=== PATIENT | female | born 1965 | race Caucasian/White ===

== ENCOUNTER 2022-04-19 13:58 | Outpatient (CLI) | payer MEDICARE, SELFPAY ==
--- NOTE | 2022-04-19 14:46 | ECG_ITS ---
Measurements Intervals [place] Rate: 67 P: -2 IA: 153 QRS: -4 QRSD: 101 T: 12 QT: 380 QTc: 403 Interpretive Statements SINUS RHYTHM INCOMPLETE RIGHT BUNDLE BRANCH BLOCK LOW QRS VOLTAGE IN PRECORDIAL LEADS BORDERLINE ECG NO PREVIOUS ECG AVAILABLE FOR COMPARISON Electronically Signed On 04-19-2022 15:29:43 CDT by Nishant Rosario D.O.
[2022-04-19 15:32] LABS: Basophils Percent Auto 0.7 % (0.2-1.2); Eosinophils Absolute Auto 0.2 K/mm3 (0-0.3); Eosinophils Percent Auto 4.3 % (0-4.4); Hematocrit 43.2 % (37.0-47.0); Hemoglobin 14.3 g/dL (12.0-15.0); Immature Granulocyte Absolute 0.08 K/mm3 (0.00-0.031); Immature Granulocyte Percent A 1.5 % (0-0.5); Lymphocytes Absolute Auto 0.25 K/mm3 (0.9-3.2); Lymphocytes Percent Auto 4.6 % (18.3-44.2); Mean Corpuscular HGB Conc 33.1 g/dl (32-36); Mean Corpuscular Hemoglobin 29.5 pg (26-34); Mean Corpuscular Volume 89.1 fl (80-100); Mean Platelet Volume 10.7 fl (7.4-10.4); Monocytes Absolute Auto 0.6 K/mm3 (0.1-0.6); Monocytes Percent Auto 11.3 % (2.6-8.5); Neutrophils Absolute Auto 4.2 K/mm3 (1.3-6.7); Neutrophils Percent Auto 77.6 % (45.5-73.1); Platelet Count Result 228 k/mm3 (150-375); Red Blood Count 4.85 M/mm3 (4.2-5.4); White Blood Count 5.4 K/mm3 (4.5-10.0)
[2022-04-19 15:47] LABS: Albumin Level 4.4 g/dL (3.5-5.1); Estimated Glomerular Filt Rate 57; Glucose 81 mg/dL (65-110)
[2022-04-19 15:55] LABS: Hemoglobin A1C 4.8 % (<5.7)
[2022-04-19 16:06] LABS: Urine Cotinine NEGATIVE
== END 2022-04-19 13:59 | disposition home or self-care (01) ==
LOC: ANHSURGERY 14:03
PROVIDERS: PCP Family Medicine; Visit Provider Orthopaedic Surgery
DX: M17.11 Unilateral primary osteoarthritis, right knee (principal); Z01.818 Encounter for other preprocedural examination; I45.10 Unspecified right bundle-branch block
CPT/HCPCS: 80307; 82040; 82565; 82947; 83036; 85025; 86850; 86900; 86901; 87081; 93005

== ENCOUNTER 2022-04-26 02:11 | Day surgery (SDC) | payer MEDICARE, SELFPAY ==
[2022-03-05 12:17] VITALS: BMI 34.9
--- NOTE | 2022-04-19 13:21 | PC.NURSE ---
PRE-OP INSTRUCTIONS, PLEASE READ CAREFULLY Report to the Outpatient Waiting Room, entrance under the green pavilion located off [facility], at time _1000_ on date _04/26/22_. Planned Procedure Time:_1200_. PACK A SMALL OVERNIGHT BAG AND LEAVE IN THE CAR ALONG WITH YOUR WALKER Time changes happen often and if your time is changed the preop area will call you the afternoon before. - You and your visitor will be asked to self-screen and do not enter if you have any COVID symptoms. - Only one visitor is requested with a max of two and NO children visitors are allowed at this time. - The patient visitor may be requested to leave or wait in car when not with patient due to distancing restrictions. - A mask is optional within the hospital at this time. -VISITING HOURS 8AM-8PM Patients may have clear liquids (water, carbonated beverages, clear teas, apple juice) until 3 hours prior to surgery (0900 AM) with a maximum of 20 ounces. - No food from midnight until time of surgery Take the following medications with a SIP of water the morning of surgery: _BUPROPION, SERTRALINE, MAYZENT, TOPIRAMATE, & GABAPENTIN IF NEEDED_ DO NOT STOP ANY OF YOUR OTHER PRESCRIPTION MEDICATIONS PRIOR TO SURGERY ?EXCEPT THE FOLLOWING Medications to discontinue per physician N/A , Date to take last dose Please no make-up, nail v[place] citizen, hairspray, perfume, deodorant, or body powder the day of surgery. No jewelry (including any body piercings) or valuables the day of surgery, leave them at home. Please take a shower or bath the night before, or the morning of, surgery with an antibacterial soap. Wear comfortable, loose fitting clothing. - Jewelry must be removed prior to entering the operating room. Rings and piercings that are not removed may be cut off. - The hospital will not accept responsibility for valuables. - Please leave all valuables, including medications, at home the day of surgery. If you are going home after surgery, a licensed salesperson driver must drive you home. - NO public transportation without another adult if you receive anesthesia. - We recommend that an adult stay with you for 24 hours following discharge. - We also recommend that you do not drive, make important decision, drink alcoholic beverages, or take any drugs that were not prescribed by your health care provider for at least 24 hours after your discharge time. Follow any additional instructions given to you from your surgeon. If you or anyone in your household have experienced Covid symptoms in the past week, please notify your surgeon or the nurse liaison at the phone number below for possible testing. Instructions given to _PATIENT_and asked if any additional questions and then verbalized understanding. Patient advised to call surgeon office or pre surgery nurse liaison [phone] if any additional questions.
[2022-04-19 14:15] VITALS: BP 132/82; PULSE 78; RESP 18; TEMP 36.7; O2SAT 98; BMI 34.8
--- NOTE | 2022-04-23 15:40 | PM.IMHP ---
H&P: HPI History of Present Illness Date/Time: 04/23/22 15:40 Chief Complaint: The patient is a 57-year-old female who sees Dr. Torres regarding her right knee. The patient has a chronic ongoing history of pain localized to the right knee this is due to primary osteoarthritis. The patient has aching pain worse with activities and relieved by rest she cannot stand or walk for long periods she has aching pain that limits what she can do during the day she has startup pain rest pain and night pain despite conservative measures including cortisone therapy and anti-inflammatories her symptoms continue. X-rays show advanced primary osteoarthritis of the right knee joint. She has had multiple cortisone injections gel shots to treat her quda-ln-snox changes in the medial compartment with varus deformity of the right knee she is tired of living with it has discussed further treatment options in detail Dr. Torres she would now like to proceed with right total knee arthroplasty. Review of Systems Review of Systems: Ten point review of systems otherwise negative [facility] Social History Social History Smoking packs per day: 1 Smoking cigarettes per day: 20.0 Years smoked: 16 Smoking pack-years: 16.00 Smoking status: Former smoker Tobacco type: e-cigarettes/vaping Second hand tobacco smoke exposure: No Additional smoking assessment comments: STATES STOPPED SMOKING , QUIT VAPING 03/05/22 Alcohol intake: former Substance use: never Substance use type: does not use Living arrangements: with family Additional living arrangements comments: LIVES WITH DAUGHTER CAMILLA Spiritual care concerns: No Meds Home Medications and Allergies Home Medications Medication Instructions Recorded Confirmed Type baclofen 20 mg tablet 30 mg PO HS 03/05/22 04/19/22 History bupropion HCl 300 mg 24 hr tablet, 300 mg PO DAILY 03/05/22 04/19/22 History extended release cholecalciferol (vitamin D3) 125 125 mcg PO HS 03/05/22 04/19/22 History mcg (5,000 unit) tablet gabapentin 300 mg tablet 300 mg PO PRN PRN Pain 03/05/22 04/19/22 History mirabegron 25 mg tablet,extended 25 mg PO DAILY 03/05/22 04/19/22 History release 24 hr (Myrbetriq) polyethylene glycol 3350 17 17 g PO PRN PRN Constipation 03/05/22 04/19/22 History gram/dose oral powder (Miralax) sertraline 100 mg tablet 100 mg PO DAILY 03/05/22 04/19/22 History siponimod 2 mg tablet (Mayzent) 2 mg PO DAILY 03/05/22 04/19/22 History temazepam 15 mg capsule 15 mg PO PRN PRN Insomnia 03/05/22 04/19/22 History topiramate 100 mg tablet 100 mg PO BID MIGRAINS 03/05/22 04/19/22 History Allergies Allergy/AdvReac Type Severity Reaction Status Date / Time No Known Allergies Allergy Verified 04/19/22 14:12 Exam Narrative: on exam today the patient is noted be well-developed well-nourished female no acute distress alert oriented x3. Normal mood and affect. Hearing and vision intact. Respiratory is good no distress. Pulse regular rate and rhythm. Abdomen benign. The patient is noted be 5 ft 3 in tall 190 lb with a BMI 33.7. Extremities showed the patient's right knee to be painful with manipulation and range of motion. She has mild varus deformity subpatellar crepitation through the arc of motion mild swelling. Motion is approximately 5-120 degrees she has no erythema heat effusion or signs of infection strength is 5 5 knee joint is otherwise stable neurovascularly she is intact skin is intact central nervous system within normal limits. Assessment and Plan Assessment and plan (1) Primary osteoarthritis of right knee: Code(s): M17.11 - Unilateral primary osteoarthritis, right knee Status: Acute Plan by x-ray and exam the patient is noted to have advanced primary osteoarthritis of the right knee joint. The patient has discussed risks benefits limitations and alternatives to surgery in gre
[2022-04-26] VITALS (13 sets, daily range): BP systolic 106–143; BP diastolic 72–96; PULSE 77–88; RESP 10–17; TEMP 36.3–37; O2SAT 94–100
--- NOTE | ~2022-04-26 | XR_ITS ---
EXAMINATION: [id number] DATE: 04/26/2022 14:11 INDICATION: Postoperative evaluation following right total knee arthroplasty. TECHNIQUE: Anteroposterior and lateral views of the right knee were obtained. COMPARISON: None. FINDINGS: Right total knee arthroplasty with patellar resurfacing appears well seated and in near anatomic alig nment. No fractures identified. Expected postoperative subcutaneous and intra-articular gas. Anterio r midline skin kishan at the right knee. IMPRESSION: 1. Right total knee arthroplasty, negative for postoperative purposes. Reviewed, dictated and finalized at location A.
[2022-04-26] MEDS: ACETAMINOPHEN 500 MG TABLET 1000 MG PO (10:16)
[2022-04-26] MEDS: LACTATED RINGERS 1,000 ML 30 ML IV CONT ×2 (10:27→13:59)
--- NOTE | 2022-04-26 10:27 | WPDHPUPDATE1 ---
History and Physical Update Update Date/Time: 04/26/22 10:27 History and Physical has been reviewed, including an updated exam of the patient. There are NO changes in the patient's condition. Risks, benefits, and alternatives have been discussed and questions answered. Patient agrees to proceed with procedure.
[2022-04-26] MEDS: TRANEXAMIC ACID 1,000MG/ISO100 1,000 MG/100 ML BAG 200 MG IVPB (11:12)
--- NOTE | 2022-04-26 11:18 | WPDANESEPPF ---
Anes - Initial Pre Proc Eval Procedure: Operation Date: 04/26/22 12:00 Proposed Procedures p Right Total Knee Arthroplasty - David Torres MD Date/Time: 04/26/22 11:18 Surgeon: David Torres MD Pre Op Diagnosis: O A Rt Knee Patient Data Age: 57 Gender: F Height: 1.6 m Weight: 87.45 kg Last Vital Signs Temp 37.0 C 04/26/22 10:59 Pulse 81 04/26/22 10:59 Resp 16 04/26/22 10:59 BP 128/80 04/26/22 10:59 Pulse Ox 98 04/26/22 10:59 O2 Del Method Room Air 04/26/22 10:59 Allergies Allergy/AdvReac Type Severity Reaction Status Date / Time No Known Allergies Allergy Verified 04/26/22 10:58 Home Medications Medication Instructions Recorded Confirmed Type baclofen 20 mg tablet 30 mg PO HS 03/05/22 04/26/22 History bupropion HCl 300 mg 24 hr tablet, 300 mg PO DAILY 03/05/22 04/26/22 History extended release cholecalciferol (vitamin D3) 125 125 mcg PO HS 03/05/22 04/26/22 History mcg (5,000 unit) tablet gabapentin 300 mg tablet 300 mg PO PRN PRN Pain 03/05/22 04/26/22 History mirabegron 25 mg tablet,extended 25 mg PO DAILY 03/05/22 04/26/22 History release 24 hr (Myrbetriq) polyethylene glycol 3350 17 17 g PO PRN PRN Constipation 03/05/22 04/26/22 History gram/dose oral powder (Miralax) sertraline 100 mg tablet 100 mg PO DAILY 03/05/22 04/26/22 History siponimod 2 mg tablet (Mayzent) 2 mg PO DAILY 03/05/22 04/26/22 History temazepam 15 mg capsule 15 mg PO PRN PRN Insomnia 03/05/22 04/26/22 History topiramate 100 mg tablet 100 mg PO BID MIGRAINS 03/05/22 04/26/22 History Patient hx anesthesia problems: none Family hx anesthesia problems: none Results Review: All pre-operative results and documents have been reviewed as part of the pre-operative evaluation. [facility]LY [facility] Past Medical History Medical History (Updated 04/26/22 @ 11:23 by Armen Baig MD) Anxiety Multiple sclerosis Obesity Social History Social History Smoking packs per day: 1 Smoking cigarettes per day: 20.0 Years smoked: 16 Smoking pack-years: 16.00 Smoking status: Former smoker Tobacco type: e-cigarettes/vaping Second hand tobacco smoke exposure: No Additional smoking assessment comments: STATES STOPPED SMOKING , QUIT VAPING 03/05/22 Alcohol intake: former Substance use: never Substance use type: does not use Living arrangements: with family Additional living arrangements comments: LIVES WITH DAUGHTER CAMILLA Spiritual care concerns: No Anes - Eval Final PreProcedure Day of Procedure 04/26/22 11:18 Patient weight: obese Heart: regular rate and rhythm Lungs: clear to auscultation Airway: Mallampati scale class II Neurological: alert and oriented Last oral intake: >/= 8 hours ASA classification: III Emergent: no Anesthetic plan: proceed Anesthesia type and monitoring: general ETT and standard monitoring Results Review: All pre-operative results and documents have been reviewed as part of the pre-operative evaluation. Informed Consent: The patient's anesthetic plan and its attendant risks and benefits were discussed with the patient/family/POA. Questions were solicited and answers provided to the satisfaction of the patient/family/POA.
[2022-04-26] MEDS: ceFAZolin 2 GM/D5W 50 ML 2 GM/50 ML BAG IVPB (11:59)
[2022-04-26] MEDS: GENTAMICIN BONE CEMENT REFOBACIN 1 EACH TOPICAL (12:40)
[2022-04-26] MEDS: ONDANSETRON INJ 4 MG/2 ML VIAL IV PUSH (14:09)
--- NOTE | 2022-04-26 14:11 | P.OPB_ITS ---
Procedure Note - Brief Procedure Note - Brief Date of procedure: 04/26/22 Pre-op diagnosis: O A Rt Knee Preop diagnosis advanced primary osteoarthritis right knee Postop diagnosis same status post right total knee arthroplasty Procedure performed: Right total knee arthroplasty Description of procedure: Patient was taken the operating room on April 26, 2022. I entered the room at 11:55 a.m. and assisted with positioning of the patient on the operating table and once anesthesia was begun I placed a tourniquet on the right thigh and proceeded with a sterile prep and drape of the right lower extremity. And shane then entered the room and commence with a total knee arthroplasty throughout the procedure I assisted with wound retraction positioning of the leg and hemostasis with suction and cautery. I also assisted with excess cement removal and placement of the implant. Once Dr. Torres was done with his portion of the procedure I then irrigated the wound major hemostasis was obtained with cauterization and placed Surgicel powder. I then proceeded with closure of the joint capsule using 2. Vicryl and 2. Quill type suture. I then irrigated the wound once again and again made sure hemostasis was obtained with cauterization I then proceeded to close the superficial and skin layers using 2- 0 Vicryl, 0 Quill, in kishan. I then placed a sterile dressing using Xeroform 4x4s soft roll and a long Ashish wrap from the toes to the groin. Patient tolerated the procedure well was ready for discharge to recovery room in good condition total blood loss was approximately 200 cc. I assisted with transfer of the patient from the operating table to the stretcher for transport to recovery room. I exited the room at 2:00 p.m.. Surgeon: Surgeon David Torres MD 1st assistant superintendent Kris Caldwell PA-C
[2022-04-26] MEDS: HYDROmorphone HCL INJ (*CRX) 1 MG/ML SYR 0.25 MG IV PUSH ×12 (14:13→15:14)
[2022-04-26] MEDS: diphenhydrAMINE HCl INJ 50 MG/ML VIAL 25 MG IV PUSH (14:32)
--- NOTE | 2022-04-26 14:40 | P.OP_ITS ---
Procedure Note - Detailed Date of Procedure 04/26/22 Pre-op Diagnosis O A Rt Knee Post-op Diagnosis Same Procedure Performed [Right] total knee arthroplasty Surgeon David Torres MD Radio Communication Coordinator Kris Caldwell Anesthesia General Description of Procedure The patient was brought to the operating room. General anesthetic was administered. Placed on the operating table and sterilely prepped and draped in usual manner. A longitudinal incision was made. Tourniquet inflated to 300 mmHg for a total of [time] minutes. Dissection carried down to the fascia. Medial parapatellar incision was made and the patella subluxated laterally. Patella cut from [25] to [16] mm and sized for a [34] mm button. The tibia cut perpendicular to the long axis and femur cut in 5 degrees of valgus, a [62.5] femur trialed. [67] tibia was felt to fit the best. The soft tissue balanced, hemostasis obtained. All [address], [67] tibia, [62.5] femur, [34] mm patella, and [11AS] mm poly. Motion was 0-125 degrees with good stablility and flexion and extension. The wound was closed with #2 vicryl, 2-0 Vicryl and kishan. Implants My Single [employer] Estimated Blood Loss -200.0 Drains No Packing No Pathology None sent Complications No immediate complications Condition Stable Disposition PACU
[2022-04-26] MEDS: HYDROcodone/acetaminophen (*CRX) 7.5-325 MG TABLET 1 TAB PO (16:07)
[2022-04-26] MEDS: SODIUM CHLORIDE 0.9% IV 1,000 ML 125 ML IV CONT (16:07)
[2022-04-26] MEDS: HYDROcodone/acetaminophen (*CRX) 5-325 MG TABLET 1 TAB PO (17:23)
[2022-04-26] MEDS: CELECOXIB 200 MG CAPSULE PO (17:24)
[2022-04-26] MEDS: TOPIRAMATE 100 MG TABLET PO (17:24)
[2022-04-26] MEDS: SENNA/DOCUSATE SODIUM TABLET 2 TAB PO (17:24)
[2022-04-26] MEDS: RIVAROXABAN 10 MG TABLET PO (17:24)
[2022-04-26] MEDS: ceFAZolin 1 GM/NS 50 ML 1 GM/50 ML BAG IVPB (20:40)
[2022-04-26] MEDS: traMADol HCL (*CRX) 50 MG TABLET PO (20:41)
[2022-04-26] MEDS: CHOLECALCIFEROL 1,000 UNITS TABLET 5000 UNITS PO (20:41)
[2022-04-26] MEDS: BACLOFEN 10 MG TABLET 30 MG PO (20:41)
[2022-04-26] MEDS: TEMAZEPAM (*CRX) 15 MG CAPSULE PO (20:41)
--- NOTE | 2022-04-26 21:16 | PM.IMCN ---
Assessment and Plan Assessment and plan (1) S/P total knee arthroplasty: Code(s): Z96.659 - Presence of unspecified artificial knee joint Status: Acute Assessment and Plan: Postop care per Dr. Torres Pain management per Dr. Torres PT OT per Dr. Torres Pain management per Dr. Torres The patient stated that she is going to outpatient physical therapy. She stated that her daughters at home and will help take care of her at home. DVT prophylaxis is per Ortho. Appears that the patient is on Xarelto. (2) Depression: Code(s): F32.A - Depression, unspecified Status: Acute Assessment and Plan: Continue with her home medication of sertraline and Wellbutrin (3) Neuropathy: Code(s): G62.9 - Polyneuropathy, unspecified Status: Acute Assessment and Plan: Continue with gabapentin (4) Anxiety: Code(s): F41.9 - Anxiety disorder, unspecified Status: Acute Assessment and Plan: Continue with sertraline (5) Multiple sclerosis: Code(s): G35 - Multiple sclerosis Status: Acute Assessment and Plan: Continue with baclofen and gabapentin and mayzent . The patient may use her medication at from home as it appears mayzent is non formulary. (6) Migraine: Code(s): G43.909 - Migraine, unspecified, not intractable, without status migrainosus Status: Acute Assessment and Plan: Continue Topamax Plan Thank you for allowing us to consult on this patient. We will continue to co manage alongside you. Please call for any further questions or concerns. HPI Data of Consult Consult date: 04/26/22 Requesting Physician: David Torres MD Primary Care Provider: Gianna AllenMD Consult Narrative Narrative: Kirsty Brown is a 57 year old female who has a history of MS. The patient stated that she has been dealing with chronic pain to her right knee. The patient has tried conservative measures such as physical therapy and injections. The patient has had a prior poor experience with another type of surgery and was very anxious about the surgery. However she could no longer do with the day-to-day discomfort. The patient underwent a right total knee arthroplasty per Dr. Torres today. Please see operative note. The patient is very groggy tonight but is awake and talking to me without difficulty. The patient is also complaining of some discomfort to the right knee at this time. X-ray was read as right total knee arthroplasty negative for postoperative purposes. The hospitalist group was consulted for medical management on the date of service of 04/26/2022. Review of Systems Review of Systems: All systems reviewed & are unremarkable except as noted in HPI and below Constitutional: Constitutional: Reports as per HPI and Reports no additional constitutional complaints Eyes: Eyes: Reports as per HPI and Reports no additional eye complaints ENT: Reports system reviewed and no additional complaints, except as documented and Reports Normal hearing present Cardiovascular: Cardiovascular: Reports no additional cardiovascular complaints Respiratory: Respiratory: Reports no additional respiratory complaints and Reports no additional respiratory complaints Gastrointestinal: Gastrointestinal: Reports as per HPI and Reports no additional gastrointestinal complaints Musculoskeletal: Musculoskeletal: Reports no additional musculoskeletal complaints Integumentary/Breasts: Skin/Breast: Reports system reviewed and no additional complaints, except as docu and Reports as per HPI Neurologic: Reports system reviewed and no additional complaints, except as documented, Reports as per HPI and Reports Normal hearing present Psychiatric: Psychiatric: Reports no additional psychiatric complaints and Reports as per HPI Endocrine: Endocrine: Reports no additional endocrine complaints Hematologic/Lymphatic: Hematologic/Lymphatic: Reports
[2022-04-27 01:15] VITALS: BP 102/73; PULSE 73; RESP 14; TEMP 36.2; O2SAT 97
[2022-04-27] MEDS: HYDROcodone/acetaminophen (*CRX) 7.5-325 MG TABLET 1 TAB PO ×2 (01:38→09:34)
[2022-04-27] MEDS: ceFAZolin 1 GM/NS 50 ML 1 GM/50 ML BAG IVPB ×2 (04:11→11:34)
[2022-04-27] MEDS: HYDROcodone/acetaminophen (*CRX) 5-325 MG TABLET 1 TAB PO (04:12)
[2022-04-27 05:13] VITALS: BP 118/75; PULSE 72; RESP 14; TEMP 36.7; O2SAT 95
[2022-04-27 06:36] LABS: Basophils Percent Auto 0.1 % (0.2-1.2); Eosinophils Percent Auto 0.4 % (0-4.4); Hematocrit 35.5 % (37.0-47.0); Hemoglobin 11.4 g/dL (12.0-15.0); Immature Granulocyte Absolute 0.07 K/mm3 (0.00-0.031); Lymphocytes Absolute Auto 0.14 K/mm3 (0.9-3.2); Lymphocytes Percent Auto 2.1 % (18.3-44.2); Mean Corpuscular HGB Conc 32.1 g/dl (32-36); Mean Corpuscular Hemoglobin 29.9 pg (26-34); Mean Corpuscular Volume 93.2 fl (80-100); Mean Platelet Volume 10.9 fl (7.4-10.4); Monocytes Absolute Auto 0.9 K/mm3 (0.1-0.6); Monocytes Percent Auto 12.9 % (2.6-8.5); Neutrophils Absolute Auto 5.6 K/mm3 (1.3-6.7); Neutrophils Percent Auto 83.5 % (45.5-73.1); Platelet Count Result 164 k/mm3 (150-375); Red Blood Count 3.81 M/mm3 (4.2-5.4); Red Cell Distribution Width 15.2 % (11.5-14.5); White Blood Count 6.7 K/mm3 (4.5-10.0)
[2022-04-27 06:52] LABS: Anion Gap 2 mmol/L (8-16); Blood Urea Nitrogen 13 mg/dL (7-17); Calcium 8.2 mg/dL (8.4-10.2); Carbon Dioxide 26 mmol/L (22-30); Chloride 111 mmol/L (98-107); Estimated CRCL calculation 63 ml/min; Estimated Glomerular Filt Rate > 60; Glucose 93 mg/dL (65-110); Potassium 4.1 mmol/L (3.4-5.0); Sodium 139 mmol/L (137-145)
--- NOTE | 2022-04-27 07:42 | P.PNAN_ITS ---
Anes - Prog Note Post-Op Date/Time: 04/27/22 07:42 Cardiovascular status: normal Respiratory status: normal Airway patency: baseline Mental status: baseline Post-Op hydration status: normal Vital Signs: Last Vital Signs Temp 36.7 C 04/27/22 05:13 Pulse 72 04/27/22 05:13 Resp 14 04/27/22 05:13 BP 118/75 04/27/22 05:13 Pulse Ox 95 04/27/22 05:13 O2 Del Method Room Air 04/26/22 20:00 O2 Flow Rate 2 04/26/22 15:25 Pain Score (VAS): 03/19 I/O: Intake & Output 04/26/22 04/26/22 04/27/22 15:59 23:59 07:59 Intake Total 900 50 50 Output Total 200 500 Balance 900 -150 -450 Laboratory Tests 04/27/22 06:07 04/27/22 06:07 04/27/22 04/27/22 06:07 06:07 WBC 6.7 RBC 3.81 L Hgb 11.4 L Hct 35.5 L MCV 93.2 MCH 29.9 MCHC 32.1 RDW 15.2 H Plt Count 164 MPV 10.9 H Immature Gran % (Auto) 1.0 H Neut % (Auto) 83.5 H Lymph % (Auto) 2.1 L [place] % (Auto) 12.9 H Eos % (Auto) 0.4 Baso % (Auto) 0.1 L Lymph # (Auto) 0.14 L [place] # (Auto) 0.9 H Eos # (Auto) 0.0 Baso # (Auto) 0.0 Abs Immat Gran (auto) 0.07 H Absolute Neuts (auto) 5.6 Absolute Nucleated RBC 0.0 Nucleated RBC % 0.0 Sodium 139 Potassium 4.1 Chloride 111 H Carbon Dioxide 26 Anion Gap 2 L BUN 13 Creatinine 0.90 Estim Creat Clear Calc 63 Estimated GFR > 60 Glucose 93 Calcium 8.2 L Post-procedural complaints: none Patient Feedback: Patient satisfied with anesthetic care.
[2022-04-27 08:00] VITALS: BP 123/78; PULSE 71; RESP 12; TEMP 36.2; O2SAT 98
[2022-04-27] MEDS: SERTRALINE HCL 50 MG TABLET 100 MG PO (09:35)
[2022-04-27] MEDS: MIRABEGRON 25 MG ER TABLET PO (09:35)
[2022-04-27] MEDS: SENNA/DOCUSATE SODIUM TABLET 2 TAB PO (09:35)
[2022-04-27] MEDS: buPROPion HCL XL (24 HR) 150 MG TABCR 300 MG PO (09:35)
[2022-04-27] MEDS: TOPIRAMATE 100 MG TABLET PO (09:35)
[2022-04-27] MEDS: CELECOXIB 200 MG CAPSULE PO (09:35)
[2022-04-27] MEDS: polyethylene glycoL 3350 17 GM POWD.PACK PO (09:35)
--- NOTE | 2022-04-27 11:00 | PM.IMPN ---
Progress Note: A&P Assessment and Plan (1) S/P total knee arthroplasty: Code(s): Z96.659 - Presence of unspecified artificial knee joint Status: Acute Assessment and Plan: Postop care per ortho Pain management norco and tramadol PRN PT OT ordered The patient stated that she is going to outpatient physical therapy. She stated that her daughters at home and will help take care of her at home. DVT prophylaxis Xarelto per othro Weight bearing status: full weight bearing (2) Depression: Code(s): F32.A - Depression, unspecified Status: Acute Assessment and Plan: Continue sertraline and Wellbutrin (3) Multiple sclerosis: Code(s): G35 - Multiple sclerosis Status: Chronic Assessment and Plan: Continue with baclofen and gabapentin and mayzent mayzent is non formulary ok to use home medication stable chronic (4) Migraine: Code(s): G43.909 - Migraine, unspecified, not intractable, without status migrainosus Status: Acute Assessment and Plan: Continue Topamax stable and chronic Time Spent With Patient Time: 36 minutes Time with patient: Greater than 35 minutes Subjective Date/time seen: 04/27/22 1100 Interval history: 04/27/22 1100 patient her daughter were present the room. Patient stated that she was pretty miserable as she was having a lot of pain in her pain was not controlled well. She currently rates her pain a 10+ out of 10. She also stated that she is just very weak and fatigued however she thinks that is more related to her MS. She denies any current chest pain, shortness a breath, nausea, vomiting, diarrhea or constipation. Will give the patient 1 dose of Toradol to see if that helps with her pain currently patient is stable for discharge per hospitalist point of view. 04/26/22 Kirsty Brown is a 57 year old female who has a history of MS.? The patient stated that she has been dealing with chronic pain to her right knee.? The patient has tried conservative measures such as physical therapy and injections.? The patient has had a prior poor experience with another type of surgery and was very anxious about the surgery.? However she could no longer do with the day-to-day discomfort.? The patient underwent a right total knee arthroplasty per Dr. Torres today.? Please see operative note.? The patient is very groggy tonight but is awake and talking to me without difficulty.? The patient is also complaining of some discomfort to the right knee at this time.? X-ray was read as right total knee arthroplasty negative for postoperative purposes.? The hospitalist group was consulted for medical management on the date of service of 04/26/2022. Review of Systems Review of Systems: All systems reviewed & are unremarkable except as noted in HPI and below Exam Narrative: General: well-nourished, well-appearing 57-year-old female, laying in bed, comfortable, NARD Neuro: awake, alert and oriented x4, speech clear, no focal neuro deficits noted HEENMT: normocephalic, atraumatic, EOMI, sclerae anicteric, moist oral mucosa Respiratory: Clear to auscultation bilaterally without crackles, rhonchi or wheezes, nonlabored breathing Cardio: regular rate, regular rhythm with S1-S2 Abdomen: nondistended, normoactive bowel sounds, soft, nontender to palpation Extremities: no edema, erythema, or tenderness to palpation, DP pulses 2+ bilaterally, right knee with dressing clean dry and intact Skin: no rashes or lesions, warm and dry Psych: appropriate mood and affect, judgment and insight intact Objective Data Vital Signs Vital Signs: Vital Signs - 24 hr 04/26/22 10:59 04/26/22 13:59 04/26/22 14:10 Temperature 98.6 F 98.3 F Pulse Rate 81 87 80 Respiratory Rate 16 10 L 16 Blood Pressure 128/80 131/96 H 143/84 H Pulse Oximetry 98 94 98 Oxygen Delivery Room Air Simple Face M
--- NOTE | 2022-04-27 11:12 | PM.PNORT ---
Progress Note: A&P Assessment and Plan (1) S/P total knee arthroplasty: Code(s): Z96.659 - Presence of unspecified artificial knee joint Status: Acute Plan Patient is postop day 1 status post right total knee arthroplasty some postop pain but otherwise doing well. She is ready for discharge to home see discharge orders. We talked about the postop course and instructions in detail today at bedside she voiced understanding and agrees with above plan she will call for any further problems difficulties or questions. Subjective Subjective Date/Time Seen: 04/27/22 11:12 patient was seen today sitting up in the chair having some postop pain in the knee nothing out of the ordinary. Little slow in physical therapy but is ready for discharge to home has no other complaints. Had several questions about the postoperative course we talked about this in detail today. She felt reassured and states she will be ready for discharge this afternoon after therapy Review of Systems Review of Systems: 10 point review of systems negative Exam Narrative: patient is noted be sitting up in the chair well-developed well-nourished no acute distress alert oriented x3. Normal mood and affect. Neurovascular she is intact wound right knee clean and dry calves benign able to do a straight leg raise of and we lower toes easily. Tolerated physical therapy today with some postop discomfort. Objective Data Vital Signs Vital Signs: Vital Signs - 24 hr 04/26/22 13:59 04/26/22 14:10 04/26/22 14:25 Temperature 36.8 C Pulse Rate 87 80 78 Respiratory Rate 10 L 16 17 Blood Pressure 131/96 H 143/84 H 133/80 Pulse Oximetry 94 98 100 Oxygen Delivery Simple Face Mask Simple Face Mask Simple Face Mask Oxygen Flow Rate 8 8 8 04/26/22 14:40 04/26/22 14:55 04/26/22 15:10 Temperature Pulse Rate 77 79 79 Respiratory Rate 12 12 14 Blood Pressure 130/89 128/76 132/87 Pulse Oximetry 96 99 97 Oxygen Delivery Nasal Cannula Nasal Cannula Nasal Cannula Oxygen Flow Rate 2 2 2 04/26/22 15:25 04/26/22 16:00 04/26/22 15:30 Temperature 36.3 C L Pulse Rate 83 82 Respiratory Rate 13 16 Blood Pressure 120/92 H 125/82 Pulse Oximetry 95 99 98 Oxygen Delivery Nasal Cannula Room Air Oxygen Flow Rate 2 04/26/22 15:45 04/26/22 17:15 04/26/22 20:58 Temperature 36.4 C 36.6 C 36.6 C Pulse Rate 84 88 77 Respiratory Rate 16 14 16 Blood Pressure 129/92 H 119/72 106/82 Pulse Oximetry 99 95 96 Oxygen Delivery Oxygen Flow Rate 04/26/22 20:00 04/27/22 01:15 04/27/22 05:13 Temperature 36.2 C L 36.7 C Pulse Rate 73 72 Respiratory Rate 14 14 Blood Pressure 102/73 118/75 Pulse Oximetry 97 95 Oxygen Delivery Room Air Oxygen Flow Rate 04/27/22 08:00 04/27/22 08:27 Temperature 36.2 C L Pulse Rate 71 Respiratory Rate 12 Blood Pressure 123/78 Pulse Oximetry 98 Oxygen Delivery Room Air Oxygen Flow Rate Intake/Output Intake/Output: Intake & Output 04/24/22 04/25/22 04/26/22 04/27/22 23:59 23:59 23:59 23:59 Intake Total 950 50 Output Total 200 500 Balance 750 -450 Meds/Results Medications: Active Medications Generic Name Dose Route Start Last Admin Trade Name Freq PRN Reason Stop Dose Admin Hydrocodone Bitart/Acetaminophen 1 tab 04/26/22 15:30 04/27/22 04:12 Hydrocodone/Acetaminophen (*Crx) 5-325 Mg Tablet PO 1 tab Q4H PRN Administration Pain Rated 4-6 Hydrocodone Bitart/Acetaminophen 1 tab 04/26/22 15:30 04/27/22 09:34 Hydrocodone/Acetaminophen (*Crx) 7.5-325 Mg Tablet PO 1 tab Q6H PRN Administration Pain Rated 7-10 Baclofen 30 mg 04/26/22 21:00 04/26/22 20:41 Baclofen 10 Mg Tablet PO 30 mg HS LALI Administration Bupropion HCl 300 mg 04/27/22 09:00 04/27/22 09:35 Bupropion Hcl Xl (24 Hr) 150 Mg Tabcr PO 300 mg DAILY LALI Administration Celecoxib 200 mg 04/26/22 17:00 04/27/22 09:35 Celecoxib 200 Mg Capsule PO 200 mg
--- NOTE | 2022-04-27 11:15 | PM.DS ---
DS: Admitting Diagnosis Discharge Date April 27, 2022 Admitting Diagnosis advanced primary osteoarthritis right knee discharge diagnosis same status post right total knee arthroplasty DS: Summary Hospital Course Hospital Course: patient was kept overnight status post right total knee arthroplasty has no significant complaints today other than postop pain nothing out of the ordinary. Tolerated therapy up in the chair now. Postop day 1 vital signs are stable she is afebrile neurovascular she is intact wound is clean and dry calves are benign. Patient and I is today discussed discharge orders and instructions she voiced understanding and is ready for discharge home later today. The patient will be discharged home general diet activity as tolerated weightbearing as tolerated right lower extremity with a walker follow-up at our office 2 weeks postop for staple removal and wound recheck. She will start Xarelto 10 mg daily for a total postop course of 2 weeks when this is complete showed aspirin 325 mg b.i.d. x1 month. Patient was also discharged with Stout 7.5 mg 1 tablet every 6 hours p.r.n. severe pain these 2 prescriptions were electronically sent to her pharmacy. She will keep the wound clean and dry watch for evidence of drainage or infection she will call the office immediately for any further problems difficulties or questions she is discharged in good condition to home. Time Spent with Patient Time attestation: Total time spent providing and/or coordinating discharge services: Exam Narrative: Vital signs stable her febrile neurovascular she is intact wound is clean and dry calves are benign alert oriented x3. Normal mood and affect. Up in therapy today tolerated well. DS: Data Data Completed and Pending Labs on day of discharge: Labs from last 24 hours 04/27/22 04/27/22 06:07 06:07 WBC 6.7 RBC 3.81 L Hgb 11.4 L Hct 35.5 L MCV 93.2 MCH 29.9 MCHC 32.1 RDW 15.2 H Plt Count 164 MPV 10.9 H Immature Gran % (Auto) 1.0 H Neut % (Auto) 83.5 H Lymph % (Auto) 2.1 L [place] % (Auto) 12.9 H Eos % (Auto) 0.4 Baso % (Auto) 0.1 L Lymph # (Auto) 0.14 L [place] # (Auto) 0.9 H Eos # (Auto) 0.0 Baso # (Auto) 0.0 Abs Immat Gran (auto) 0.07 H Absolute Neuts (auto) 5.6 Absolute Nucleated RBC 0.0 Nucleated RBC % 0.0 Sodium 139 Potassium 4.1 Chloride 111 H Carbon Dioxide 26 Anion Gap 2 L BUN 13 Creatinine 0.90 Estim Creat Clear Calc 63 Estimated GFR > 60 Glucose 93 Calcium 8.2 L Discharge Plan Discharge Patient Disposition: Home, Self-Care Discharge Instructions: David Torres M.D [facility], [facility] [address] [place] [address] POST-OPERATIVE DISCHARGE INSTRUCTIONS TOTAL KNEE ARTHROPLASTY 1. When resting, lie on back with leg elevated above hear to minimize swelling. Significant swelling could indicate a blood clot and if this occurs call the office (or go to the ER) to have a venous ultrasound. 2. Do exercise 5 times a day. 3. Do not sit with leg down except for meals. 4. Wound Care: Nursing will give additional dressings at discharge. Patient to change dressing at home 1 week from surgery, then maintain until seen in office. 5. May shower with dressing in place. 6. Follow weight bearing status instructions. IMPORTANT: Remember not to sit in the chair for more than 30 minutes at a time. As a rule, during the first 14 days after surgery, only sit in the chair to work on the chair knee bending stretch exercise, for meals or for use of the restroom. Sitting in the chair promotes significant swelling in the knee and leg which will make the knee stiff and more painful and which simulates having a blood clot in the veins of the leg. If this type of significant diffuse swelling occurs, an ultrasound at the hospital will be necessary to rule out a blood clot. Be up walking su
[2022-04-27] MEDS: KETOROLAC 30 MG/ML VIAL (*BKC) IV PUSH (11:34)
[2022-04-27 11:56] VITALS: BP 122/86; PULSE 76; RESP 16; TEMP 36.6; O2SAT 99
== END 2022-04-27 15:10 | disposition home or self-care (01) ==
LOC: ANHSURGERY 14:48 → ANH3MEDSUR 15:32
PROVIDERS: PCP Family Medicine; Visit Provider Orthopaedic Surgery
PROC: (CPT 27447; principal; 2022-04-26 12:00)
DX: M17.11 Unilateral primary osteoarthritis, right knee (principal); G89.18 Other acute postprocedural pain; G35 Multiple sclerosis; F41.9 Anxiety disorder, unspecified; G62.9 Polyneuropathy, unspecified; G43.909 Migraine, unspecified, not intractable, without status migrainosus; E66.9 Obesity, unspecified; Z68.34 Body mass index [BMI] 34.0-34.9, adult; Z87.891 Personal history of nicotine dependence
CPT/HCPCS: 27447; 36415; 73560; 80048; 80307; 82040; 82565; 82947; 83036; 85025; 86850; 86900; 86901; 87081; 93005; 97110; 97116; 97161; 97165; A9270; C1713; C1770; C1776; J0690; J1100; J1170; J1200; J1885; J2250; J2270; J2405; J2704; J2795; J3010; J3370; J7030; J7120

== ENCOUNTER 2023-08-23 07:53 | Outpatient (CLI) | payer MEDICARE, SELFPAY ==
--- NOTE | 2023-08-23 09:04 | ECG_ITS ---
Test Date: 2023-08-23 09:21:12 Measurements Intervals [place] Rate: 73 P: -14 [place]: 143 QRS: -7 QRSD: 99 T: 9 QT: 375 QTc: 414 Interpretive Statements SINUS RHYTHM BORDERLINE T WAVE ABNORMALITY- ANTERIOR LEADS BASELINE ARTIFACT- I, III, AVR, AVL, AVF, V1-V6 BORDERLINE ECG No previous ECG available for comparison Electronically Signed On 08-23-2023 11:55:31 CDT by Nishant Rosario D.O.
[2023-08-23 09:28] LABS: Basophils Percent Auto 0.7 % (0.2-1.2); Eosinophils Absolute Auto 0.2 K/mm3 (0-0.3); Eosinophils Percent Auto 3.5 % (0-4.4); Hematocrit 45.9 % (37.0-47.0); Hemoglobin 14.9 g/dL (12.0-15.0); Immature Granulocyte Absolute 0.06 K/mm3 (0.00-0.031); Immature Granulocyte Percent A 1.1 % (0-0.5); Lymphocytes Absolute Auto 0.24 K/mm3 (0.9-3.2); Lymphocytes Percent Auto 4.4 % (18.3-44.2); Mean Corpuscular HGB Conc 32.5 g/dl (32-36); Mean Corpuscular Hemoglobin 29.7 pg (26-34); Mean Corpuscular Volume 91.6 fl (80-100); Mean Platelet Volume 10.8 fl (7.4-10.4); Monocytes Absolute Auto 0.6 K/mm3 (0.1-0.6); Monocytes Percent Auto 11.5 % (2.6-8.5); Neutrophils Absolute Auto 4.3 K/mm3 (1.3-6.7); Neutrophils Percent Auto 78.8 % (45.5-73.1); Platelet Count Result 216 k/mm3 (150-375); Red Blood Count 5.01 M/mm3 (4.2-5.4); Red Cell Distribution Width 14.7 % (11.5-14.5); White Blood Count 5.4 K/mm3 (4.5-10.0)
[2023-08-23 09:39] LABS: Albumin Level 4.4 g/dL (3.5-5.1); Estimated Glomerular Filt Rate 51; Glucose 94 mg/dL (65-110)
[2023-08-23 09:50] LABS: Urine Cotinine NEGATIVE
== END 2023-08-23 07:54 | disposition home or self-care (01) ==
PROVIDERS: PCP Family Medicine; Visit Provider Orthopaedic Surgery
DX: M17.12 Unilateral primary osteoarthritis, left knee (principal); Z01.818 Encounter for other preprocedural examination; R94.31 Abnormal electrocardiogram [ECG] [EKG]
CPT/HCPCS: 80307; 82040; 82565; 82947; 83036; 85025; 86850; 86900; 86901; 93005

== ENCOUNTER 2023-08-31 00:44 | Day surgery (SDC) | payer MEDICARE, SELFPAY ==
[2023-08-23 07:43] VITALS: BP 126/92; PULSE 72; RESP 16; TEMP 37.3; O2SAT 97; BMI 34.3
--- NOTE | 2023-08-23 07:51 | PC.NURSE ---
Report to the Outpatient Waiting Room, entrance under the green pavilion located off [facility], at time 06:00AM__ on date ___08/31/23____. Planned Procedure Time: ___07:30AM . Time changes happen often and if your time is changed the preop area will call you the afternoon before. - You and your visitor will be asked to self-screen and do not enter if you have any COVID symptoms. - A mask is optional within the hospital at this time. Patients may have clear liquids (water, carbonated beverages, clear teas, apple juice) until 3 hours prior to surgery with a maximum of 20 ounces. - No food from midnight until time of surgery Take the following medications with a SIP of water the morning of surgery: BUPROPION, SERTRALINE, TOPIRAMATE DO NOT STOP ANY OF YOUR OTHER PRESCRIPTION MEDICATIONS PRIOR TO SURGERY ?EXCEPT THE FOLLOWING Medications to discontinue per physician ____ALL VITAMINS, SUPPLEMENTS 3 DAYS PREOP PER ANESTHESIA Date to take last dose 08/27/23 Please no make-up, nail tamazight, hairspray, perfume, deodorant, or body powder the day of surgery. No jewelry (including any body piercings) or valuables the day of surgery, leave them at home. Please take a shower or bath the night before, or the morning of, surgery with an antibacterial soap. Wear comfortable, loose fitting clothing. Children are encouraged to wear pajamas. - Jewelry must be removed prior to entering the operating room. Rings and piercings that are not removed may be cut off. - The hospital will not accept responsibility for valuables. - Please leave all valuables, including medications, at home the day of surgery. If you are going home after surgery, a licensed corrugated fastener driver must drive you home. - NO public transportation without another adult if you receive anesthesia. - We recommend that an adult stay with you for 24 hours following discharge. - We also recommend that you do not drive, make important decision, drink alcoholic beverages, or take any drugs that were not prescribed by your health care provider for at least 24 hours after your discharge time. Follow any additional instructions given to you from your surgeon. If you or anyone in your household have experienced Covid symptoms in the past week, please notify your surgeon or the nurse liaison at the phone number below for possible testing. Telephone instructions given to PATIENT and asked if any additional questions and then verbalized understanding. Patient advised to call surgeon office or pre surgery nurse liaison [phone] if any additional questions.
--- NOTE | 2023-08-30 08:10 | PM.IMHP ---
H&P: HPI History of Present Illness Date/Time: 08/30/23 08:10 Chief Complaint: Patient has osteoarthritis of the left knee. This has been unresponsive to conservative treatment. She would like to consider knee replacement surgery at this time. Review of Systems Musculoskeletal: Musculoskeletal: Reports arthralgias, Reports joint swelling and Reports stiffness [facility] Past Medical History Medical History Anxiety Depression Migraine Multiple sclerosis Neuropathy Obesity Surgical History Surgical History H/O bladder repair surgery H/O: hysterectomy History of right knee joint replacement 04/2022 Hx of cholecystectomy S/P total knee arthroplasty Family History Family History Father Depression Lung cancer Mother Leukemia Grandparent Breast cancer Social History Social History Social History: The patient lives with her daughter who has spina bifida. Patient is disabled. She is . Code status full code Smoking packs per day: 0.5 Smoking cigarettes per day: 10.0 Years smoked: 35 Smoking pack-years: 17.50 Smoking status: Former smoker Tobacco type: cigarettes and e-cigarettes/vaping Second hand tobacco smoke exposure: No Smoking end date: 08/07/17 Additional smoking assessment comments: QUIT VAPING W NICOTINE 2022 Alcohol intake: current Substance use: never Substance use type: does not use Do You Feel Safe in your Home?: Yes Lack of Transportation: No Lack of Food: Never True Current Housing: I Have Housing Concerned About Future Housing: No Difficulty Paying Gas/Electric Bills: No Difficulty Paying for Meds: No Currently Unemployed: No Education: High School Diploma/GED Difficulty w/ Childcare or Family Care: No Living arrangements: with family Additional living arrangements comments: WITH DAUGHTER Additional occupation/education comments: disabled Spiritual care concerns: No Meds Home Medications and Allergies Home Medications Medication Instructions Recorded Confirmed Type baclofen 20 mg tablet 30 mg PO TID SPASM 03/05/22 08/23/23 History bupropion HCl 300 mg 24 hr tablet, 300 mg PO DAILY 03/05/22 08/23/23 History extended release cholecalciferol (vitamin D3) 125 125 mcg PO DAILY 03/05/22 08/23/23 History mcg (5,000 unit) tablet gabapentin 300 mg tablet 300 mg PO PRN PRN Pain 03/05/22 08/23/23 History polyethylene glycol 3350 17 17 g PO PRN PRN Constipation 03/05/22 08/23/23 History gram/dose oral powder (Miralax) sertraline 100 mg tablet 100 mg PO DAILY 03/05/22 08/23/23 History siponimod 2 mg tablet (Mayzent) 2 mg PO DAILY 03/05/22 08/23/23 History temazepam 15 mg capsule (Restoril) 15 mg PO HS Insomnia 03/05/22 08/23/23 History topiramate 100 mg tablet See Rx Instructions .Route 03/05/22 08/23/23 History .COMPLEX MIGRAINS phentermine 37.5 mg capsule 37.5 mg PO DAILY 05/04/23 08/23/23 History rivaroxaban 10 mg tablet (Xarelto) 10 mg PO DAILY PE prophylaxis s/p 08/25/23 Rx joint replacement surgery 10 days #10 tabs Allergies Allergy/AdvReac Type Severity Reaction Status Date / Time No Known Allergies Allergy Verified 08/23/23 08:04 Exam Narrative: Patient has mild varus deformity. She has range of motion from about 3-110 degrees. She has grinding crepitus and pain with any manipulation. She walks with an antalgic gait. She has had a knee replacement on the right knee and that is well healed. Eyes: General: appearance normal, both eyes and all related structures Neck: Neck: supple Resp: Effort & Inspection: normal respiratory effort Cardio: Rate: regular rate Rhythm: regular rhythm Assessment and Plan Assessment and plan (1) History of knee replacement procedure
[2023-08-31] VITALS (12 sets, daily range): BP systolic 97–130; BP diastolic 58–91; PULSE 70–84; RESP 12–18; TEMP 36.3–36.9; O2SAT 96–100
--- NOTE | ~2023-08-31 | XR_ITS ---
EXAMINATION: [id number] DATE: 08/31/2023 10:46 CDT INDICATION: Left total knee arthroplasty TECHNIQUE: 2 views left knee FINDINGS: There is a left total knee arthroplasty in expected position. Subcutaneous gas with fluid and air in the joint and overlying skin kishan are consistent with recent surgery. No evidence of pe riprosthetic fracture. IMPRESSION: 1. Recent left total knee arthroplasty. Reviewed, dictated and finalized at location B.
--- NOTE | 2023-08-31 06:36 | WPDHPUPDATE1 ---
History and Physical Update Update Date/Time: 08/31/23 06:36 History and Physical has been reviewed, including an updated exam of the patient. There are NO changes in the patient's condition. Risks, benefits, and alternatives have been discussed and questions answered. Patient agrees to proceed with procedure.
[2023-08-31] MEDS: ACETAMINOPHEN 500 MG TABLET 1000 MG PO (06:40)
[2023-08-31] MEDS: LACTATED RINGERS 1,000 ML 30 ML IV CONT ×3 (07:03→10:03)
[2023-08-31] MEDS: VANCOMYCIN 1,250 MG/NS 250 ML BAG 166.67 MG IVPB (07:05)
[2023-08-31] MEDS: TRANEXAMIC ACID 1,000MG/ISO100 1,000 MG/100 ML BAG 200 MG IVPB (07:08)
--- NOTE | 2023-08-31 07:11 | WPDANESEPPF ---
Anes - Initial Pre Proc Eval Procedure: Operation Date: 08/31/23 07:30 Proposed Procedures p Left Total Knee Arthroplasty - David Torres MD Date/Time: 08/31/23 07:11 Surgeon: David Torres MD Pre Op Diagnosis: O A Left Knee Patient Data Age: 58 Gender: F Height: 1.6 m Weight: 88 kg Last Vital Signs Temp 97.4 F L 08/31/23 06:04 Pulse 74 08/31/23 06:04 Resp 18 08/31/23 06:04 BP 130/79 08/31/23 06:04 Pulse Ox 100 08/31/23 06:04 O2 Del Method Room Air 08/31/23 06:04 Allergies Allergy/AdvReac Type Severity Reaction Status Date / Time No Known Allergies Allergy Verified 08/31/23 06:17 Home Medications Medication Instructions Recorded Confirmed Type baclofen 20 mg tablet 30 mg PO TID SPASM 03/05/22 08/31/23 History bupropion HCl 300 mg 24 hr tablet, 300 mg PO DAILY 03/05/22 08/31/23 History extended release cholecalciferol (vitamin D3) 125 125 mcg PO DAILY 03/05/22 08/31/23 History mcg (5,000 unit) tablet gabapentin 300 mg tablet 300 mg PO PRN PRN Pain 03/05/22 08/31/23 History polyethylene glycol 3350 17 17 g PO PRN PRN Constipation 03/05/22 08/31/23 History gram/dose oral powder (Miralax) sertraline 100 mg tablet 100 mg PO DAILY 03/05/22 08/31/23 History siponimod 2 mg tablet (Mayzent) 2 mg PO DAILY 03/05/22 08/31/23 History temazepam 15 mg capsule (Restoril) 15 mg PO HS Insomnia 03/05/22 08/31/23 History topiramate 100 mg tablet See Rx Instructions .Route 03/05/22 08/31/23 History .COMPLEX MIGRAINS phentermine 37.5 mg capsule 37.5 mg PO DAILY 05/04/23 08/31/23 History rivaroxaban 10 mg tablet (Xarelto) 10 mg PO DAILY PE prophylaxis s/p 08/25/23 08/31/23 Rx joint replacement surgery 10 days #10 tabs Patient hx anesthesia problems: none Family hx anesthesia problems: none Results Review: All pre-operative results and documents have been reviewed as part of the pre-operative evaluation. [facility] Past Medical History Medical History Anxiety Depression Migraine Multiple sclerosis Neuropathy Obesity Surgical History Surgical History H/O bladder repair surgery H/O: hysterectomy History of right knee joint replacement 04/2022 Hx of cholecystectomy S/P total knee arthroplasty Family History Family History Father Depression Lung cancer Mother Leukemia Grandparent Breast cancer Social History Social History Social History: The patient lives with her daughter who has spina bifida. Patient is disabled. She is . Code status full code Smoking packs per day: 0.5 Smoking cigarettes per day: 10.0 Years smoked: 35 Smoking pack-years: 17.50 Smoking status: Former smoker Tobacco type: cigarettes and e-cigarettes/vaping Second hand tobacco smoke exposure: No Smoking end date: 08/07/17 Additional smoking assessment comments: QUIT VAPING W NICOTINE 2022 Alcohol intake: current Substance use: never Substance use type: does not use Do You Feel Safe in your Home?: Yes Lack of Transportation: No Lack of Food: Never True Current Housing: I Have Housing Concerned About Future Housing: No Difficulty Paying Gas/Electric Bills: No Difficulty Paying for Meds: No Currently Unemployed: No Education: High School Diploma/GED Difficulty w/ Childcare or Family Care: No Living arrangements: with family Additional living arrangements comments: WITH DAUGHTER Additional occupation/education comments: disabled Spiritual care concerns: No Anes - Eval Final PreProcedure Day of Procedure 08/31/23 07:11 Patient weight: obese Heart: regular rate and rhythm Lungs: clear to auscultation Airway: Mallampati scale class II Neurological: alert and oriented
[2023-08-31] MEDS: ceFAZolin 2 GM/D5W 50 ML 2 GM/50 ML BAG IVPB ×3 (07:28→21:45)
[2023-08-31] MEDS: SODIUM CHLORIDE 0.9% IV 37.7 ML, MORPHINE SULFATE INJ (*CRX) 2 MG, ROPivacaine HCL 1% 2... INFILTRATE (08:57)
[2023-08-31] MEDS: TRANEXAMIC ACID 1,000 MG/10 ML AMPUL 1000 MG IV PUSH (09:03)
[2023-08-31] MEDS: ceFAZolin SODIUM 1 GM VIAL IV PUSH (09:04)
--- NOTE | 2023-08-31 09:12 | P.OP_ITS ---
Procedure Note - Detailed Date of Procedure 08/31/23 Pre-op Diagnosis Osteoarthritis Left Knee Post-op Diagnosis Same Procedure Performed Left Total Knee Arthroplasty Surgeon David Torres MD Supervisor Force Adjustment Joesph Mckeon Anesthesia General Indications Pain & Arthritis Description of Procedure The patient was brought to operating room #7. A general anesthetic was administered. Placed on the operating table and sterilely prepped and draped in usual manner. A longitudinal incision was made. Tourniquet inflated to 300 mmHg for a total of 60 minutes. Dissection was carried down to the fascia. Medial parapatellar incision was made and the patella subluxated laterally. Patella cut from 24 to 15 mm and sized for a 34 mm button. The tibia was cut perpendicular to the long axis and femur cut in 5 degrees of valgus. A 60 femur trialed. 67 tibia was felt to fit the best. The soft tissues balanced, hemostasis obtained. All [address], 67 tibia, 60 femur, 34 mm patella, and 10AS mm poly. Motion was 0-125 degrees with good stability in both flexion and extension. The wound was closed with #2 Vicryl, 2-0 Vicryl and kishan. [employer] Estimated Blood Loss 200 Drains No Packing No Pathology None sent Complications No immediate complications Condition Stable Disposition PACU [facility] Billing Surgery - Charge Forward: Surgery Billing (Total Knee [id number])
[2023-08-31] MEDS: fentaNYL CITRATE INJ (*CRX) 100 MCG/2 ML VIAL 25 MCG IV PUSH ×4 (10:00→10:15)
[2023-08-31] MEDS: MORPHINE SULFATE INJ (*CRX) 10 MG/ML AMP 2 MG IV PUSH ×5 (10:25→10:45)
[2023-08-31] MEDS: SODIUM CHLORIDE 0.9% IV 1,000 ML 125 ML IV CONT (11:42)
[2023-08-31] MEDS: ONDANSETRON INJ 4 MG/2 ML VIAL IV PUSH ×2 (11:43→14:23)
[2023-08-31] MEDS: HYDROmorphone HCL INJ (*CRX) 1 MG/ML SYR IV PUSH (11:43)
--- NOTE | 2023-08-31 12:03 | PC.NURSE ---
This patient, Kirsty Brown, was admitted to [facility] Surg Room 311-01. Patient/family oriented to hospital policies and general routines including ID bracelet, bed and alarms, visiting hours, pain management, procedures, bathroom and other care routines, personal items, smoking policy, room service/diet, and visiting hours. Information on how to activate the Rapid Response Team has been discussed. Patient/Family are encouraged to report perceived risks to care and to ask questions if they do not understand what they are told or what they should do.
--- NOTE | 2023-08-31 13:18 | WPDCN ---
Assessment and Plan Assessment and plan (1) Osteoarthritis of left knee: Code(s): M17.12 - Unilateral primary osteoarthritis, left knee Status: Acute Assessment and Plan: Postoperative day 0 status post left total knee arthroplasty. Wound care, pain control, and DVT prophylaxis deferred to Dr. Torres. (2) Postoperative nausea: Code(s): R11.0 - Nausea; Z98.890 - Other specified postprocedural states Status: Acute Assessment and Plan: Continue nausea despite ondansetron. Seems to be improving with scopolamine patch. (3) Multiple sclerosis: Code(s): G35 - Multiple sclerosis Status: Chronic Assessment and Plan: Continue Mayzent, baclofen, and gabapentin. (4) Depression: Code(s): F32.A - Depression, unspecified Status: Acute Assessment and Plan: No acute issues. Continue bupropion and sertraline. (5) Insomnia: Code(s): G47.00 - Insomnia, unspecified Status: Acute Assessment and Plan: On temazepam as needed. (6) Migraine: Code(s): G43.909 - Migraine, unspecified, not intractable, without status migrainosus Status: Acute Assessment and Plan: Continue topiramate. Plan Thank you for allowing us to participate in this patient's care. Please do not hesitate to contact us with any questions. HPI Data of Consult Date/Time: 08/31/23 13:20 Requesting Physician: David Torres MD Consult Narrative Reason for consult: Medical management. Narrative: This is a very pleasant 58-year-old female with history of multiple sclerosis, migraine headaches, depression, insomnia, and arthritis whom the hospitalist service has been consulted for help managing her medical conditions postoperatively. She presented today for elective total knee arthroplasty due to ongoing pain her left knee despite conservative outpatient treatment. Surgery was performed under general anesthesia with no immediate complications documented an estimated blood loss of 200 mL. Postoperatively she has had quite a bit of nausea but seems to be improving with the addition of a scopolamine patch. Her pain is well controlled. She denies fever, chills, sweats, syncope, near syncope, chest pain, pleuritic pain, shortness of breath, and vomiting. She lives at home with her daughter was also disabled due to spinal bifida. Her home is ADA assessable. Regarding her chronic medical conditions they are well controlled on home medications. Review of Systems Review of Systems: 12 systems were reviewed and are negative except for as per HPI. [facility] Past Medical History Medical History (Updated 08/31/23 @ 20:39 by Michelle Spears PA-C) Anxiety Depression Gastroesophageal reflux disease Insomnia Migraine Multiple sclerosis Neuropathy Obesity Overactive bladder Surgical History Surgical History (Updated 08/31/23 @ 13:22 by Michelle Spears PA-C) History of arthroplasty of left knee (08/31/23) History of arthroplasty of right knee (04/26/22) History of bladder repair surgery History of cholecystectomy History of hysterectomy (2013) Family History Family History Father Depression Lung cancer Mother Leukemia Grandparent Breast cancer Social History Social History (Updated 08/31/23 @ 13:23 by Michelle Spears PA-C) Social History: Surrogate medical decision maker: Rosie Stevens, sibling. Code status: Full code. Smoking packs per day: 0.5 Smoking cigarettes per day: 10.0 Years smoked: 35 Smoking pack-years: 17.50 Smoking status: Former smoker Tobacco type: cigarettes and e-cigarettes/vaping Second hand tobacco smoke exposure: No Smoking end date: 08/07/17 Additional smoking assessment comments: Quit vaping with nicotine in 2022. Alcohol intake: never Substance use: current Substance use type: marijuana Last use: unkno
[2023-08-31] MEDS: BACLOFEN 10 MG TABLET 30 MG PO ×2 (13:31→16:13)
--- NOTE | 2023-08-31 15:38 | PCPTNOTE ---
On 08/31/23, the student, [Jacque Vazquez], provided care and completed [facility] documentation on this patient. I have reviewed the student's documentation and agree with the findings.
[2023-08-31] MEDS: CELECOXIB 200 MG CAPSULE PO (16:12)
[2023-08-31] MEDS: SCOPOLAMINE 1 MG PATCH 1 PATCH TRANSDERM (16:12)
[2023-08-31] MEDS: SENNA/DOCUSATE SODIUM TABLET 2 TAB PO (16:12)
[2023-08-31] MEDS: SERTRALINE HCL 50 MG TABLET 100 MG PO (16:12)
[2023-08-31] MEDS: TEMAZEPAM (*CRX) 15 MG CAPSULE PO (21:45)
[2023-08-31] MEDS: TOPIRAMATE 100 MG TABLET BY MOUTH (21:45)
[2023-09-01 00:52] VITALS: BP 104/62; PULSE 72; RESP 18; TEMP 36.2; O2SAT 99
[2023-09-01] MEDS: HYDROcodone/acetaminophen (*CRX) 7.5-325 MG TABLET 1 TAB PO ×2 (03:22→07:59)
[2023-09-01 03:54] VITALS: BP 101/68; PULSE 69; RESP 18; TEMP 36.3; O2SAT 99
[2023-09-01] MEDS: ceFAZolin 2 GM/D5W 50 ML 2 GM/50 ML BAG IVPB (05:44)
--- NOTE | 2023-09-01 07:01 | PM.PNORT ---
Progress Note: A&P Assessment and Plan (1) Osteoarthritis of left knee: Code(s): M17.12 - Unilateral primary osteoarthritis, left knee Status: Acute Assessment and Plan: Patient is status post left total knee arthroplasty for osteoarthritis. She has progressed normally. She she is having some issues with pain control. Will ambulator today if she does well dismiss with this afternoon discussed. (2) History of knee replacement procedure of left knee: Code(s): Z96.652 - Presence of left artificial knee joint Status: Acute Subjective Subjective Date/Time Seen: 09/01/23 07:01 Post Op day: 1 Principal diagnosis: Left total knee arthroplasty for osteoarthritis left knee Review of Systems Musculoskeletal: Musculoskeletal: Reports arthralgias, Reports joint swelling and Reports stiffness Exam Narrative: Patient is neurologically intact. The as is the dressing. She is ambulating a little bit at this time. Objective Data Vital Signs Vital Signs: Vital Signs - 24 hr 08/31/23 09:44 08/31/23 10:00 08/31/23 10:15 Temperature 97.3 F L Pulse Rate 72 74 75 Respiratory Rate 12 12 12 Blood Pressure 123/65 124/64 127/58 L Pulse Oximetry 100 100 100 Oxygen Delivery Simple Face Mask Simple Face Mask Simple Face Mask Oxygen Flow Rate 8 8 8 08/31/23 10:30 08/31/23 10:45 08/31/23 11:20 Temperature 97.3 F L Pulse Rate 75 73 73 Respiratory Rate 12 12 14 Blood Pressure 118/65 114/62 116/67 Pulse Oximetry 97 96 99 Oxygen Delivery Room Air Room Air Oxygen Flow Rate 08/31/23 11:40 08/31/23 12:10 08/31/23 12:36 Temperature 98.4 F 97.7 F Pulse Rate 75 75 Respiratory Rate 14 18 Blood Pressure 117/73 108/63 Pulse Oximetry 99 98 Oxygen Delivery Room Air Oxygen Flow Rate 08/31/23 13:24 08/31/23 14:10 08/31/23 16:47 Temperature 97.6 F 98.1 F Pulse Rate 84 70 Respiratory Rate 16 14 Blood Pressure 121/91 H 101/68 Pulse Oximetry 98 99 Oxygen Delivery Room Air Oxygen Flow Rate 08/31/23 20:52 09/01/23 00:52 08/31/23 20:00 Temperature 97.5 F L 97.2 F L Pulse Rate 73 72 Respiratory Rate 18 18 Blood Pressure 97/64 L 104/62 Pulse Oximetry 99 99 Oxygen Delivery Room Air Oxygen Flow Rate 09/01/23 03:54 Temperature 97.3 F L Pulse Rate 69 Respiratory Rate 18 Blood Pressure 101/68 Pulse Oximetry 99 Oxygen Delivery Oxygen Flow Rate Intake/Output Intake/Output: Intake & Output 08/29/23 08/30/23 08/31/23 09/01/23 23:59 23:59 23:59 23:59 Intake Total 1210 240 Balance 1210 240 Meds/Results Medications: Active Medications Generic Name Dose Route Start Last Admin Trade Name Freq PRN Reason Stop Dose Admin Hydrocodone Bitart/Acetaminophen 1 tab 08/31/23 11:07 Hydrocodone/Acetaminophen (*Crx) 5-325 Mg Tablet PO Q4H PRN Pain Rated 4-6 Hydrocodone Bitart/Acetaminophen 1 tab 08/31/23 11:07 09/01/23 03:22 Hydrocodone/Acetaminophen (*Crx) 7.5-325 Mg Tablet PO 1 tab Q4H PRN Administration Pain Rated 7-10 Baclofen 30 mg 08/31/23 13:00 08/31/23 16:13 Baclofen 10 Mg Tablet PO 30 mg TID LALI Administration Bupropion HCl 300 mg 09/01/23 09:00 Bupropion Hcl Xl (24 Hr) 150 Mg Tabcr PO DAILY LALI Celecoxib 200 mg 08/31/23 17:00 08/31/23 16:12 Celecoxib 200 Mg Capsule PO 200 mg BIDWM LALI Administration Cyclobenzaprine HCl 10 mg 08/31/23 11:07 Cyclobenzaprine Hcl 10 Mg Tablet PO Q8H PRN Spasms Diphenhydramine HCl 25 mg 08/31/23 11:07 Diphenhydramine Hcl Inj 50 Mg/Ml Vial IV PUSH Q6H PRN Itching Hydromorphone HCl 1 mg 08/31/23 11:07 08/31/23 11:43 Hydromorphone Hcl Inj (*Crx) 1 Mg/Ml Syr IV PUSH 1 mg Q2H PRN Administration Breakthrough Pain Rated 7-10 or NPO Hydromorphone HCl 0.5 mg 08/31/23 11:07 Hydromorphone Hcl Inj (*Crx) 1 Mg/Ml Syr IV PUSH Q2H PRN Breakthrough Pain Rated 4-6 or NPO Naloxone
[2023-09-01 07:02] LABS: Basophils Percent Auto 0.3 % (0.2-1.2); Eosinophils Absolute Auto 0.1 K/mm3 (0-0.3); Eosinophils Percent Auto 1.3 % (0-4.4); Hematocrit 38.7 % (37.0-47.0); Immature Granulocyte Absolute 0.03 K/mm3 (0.00-0.031); Immature Granulocyte Percent A 0.4 % (0-0.5); Lymphocytes Absolute Auto 0.17 K/mm3 (0.9-3.2); Lymphocytes Percent Auto 2.5 % (18.3-44.2); Mean Corpuscular Volume 93.5 fl (80-100); Mean Platelet Volume 11.3 fl (7.4-10.4); Monocytes Absolute Auto 0.9 K/mm3 (0.1-0.6); Monocytes Percent Auto 13.4 % (2.6-8.5); Neutrophils Absolute Auto 5.6 K/mm3 (1.3-6.7); Neutrophils Percent Auto 82.1 % (45.5-73.1); Platelet Count Result 167 k/mm3 (150-375); Red Blood Count 4.14 M/mm3 (4.2-5.4); Red Cell Distribution Width 14.7 % (11.5-14.5); White Blood Count 6.8 K/mm3 (4.5-10.0)
--- NOTE | 2023-09-01 07:04 | PM.DS ---
DS: Admitting Diagnosis Discharge Date 09/01/23 Admitting Diagnosis Left Knee Osteoarthritis DS: Discharge Diagnosis Discharge Diagnosis (1) History of knee replacement procedure of left knee: Code(s): Z96.652 - Presence of left artificial knee joint Status: Acute Plan Left total knee arthroplasty for osteoarthritis. DS: Summary Hospital Course Hospital Course: Patient underwent the total knee arthroplasty for osteoarthritis on the left knee. She has already done this on the right knee and has done well. She is following a typical postop course at this time. Will ambulator today and dismiss this afternoon. If she has any changes or problems she will call discussed. Time Spent with Patient Time attestation: Total time spent providing and/or coordinating discharge services: DS: Data Data Completed and Pending Labs on day of discharge: Labs from last 24 hours 09/01/23 06:24 WBC Pending RBC Pending Hgb Pending Hct Pending MCV Pending MCH Pending MCHC Pending RDW Pending Plt Count Pending MPV Pending Immature Gran % (Auto) Pending Neut % (Auto) Pending Lymph % (Auto) Pending [place] % (Auto) Pending Eos % (Auto) Pending Baso % (Auto) Pending Lymph # (Auto) Pending [place] # (Auto) Pending Eos # (Auto) Pending Baso # (Auto) Pending Abs Immat Gran (auto) Pending Absolute Neuts (auto) Pending Absolute Nucleated RBC Pending Nucleated RBC % Pending Sodium Pending Potassium Pending Chloride Pending Carbon Dioxide Pending Anion Gap Pending BUN Pending Creatinine Pending Estim Creat Clear Calc Pending Estimated GFR Pending Glucose Pending Calcium Pending Magnesium Pending Total Bilirubin Pending Direct Bilirubin Pending AST Pending ALT Pending Alkaline Phosphatase Pending Total Protein Pending Albumin Pending Discharge Plan Discharge Patient Disposition: Home, Self-Care Discharge Instructions: Dr. David Torres M.D [address] [facility] [address] [place] [id number] POST-OPERATIVE DISCHARGE INSTRUCTIONS TOTAL KNEE ARTHROPLASTY 1. When resting, do not rest in the chair.When resting, lie on your back, with back flat on the couch or bed, with leg elevated above heart to minimize swelling. You may put a pillow under your head. . Significant swelling could indicate a blood clot and if this occurs call the office (or go to the ER) to have a venous ultrasound. Therefore, do not rest in a chair. 2. At least five times a day spend several minutes stretching your knee into flexion while sitting in the chair and also stretching your knee out straight The abilities to bend your knee fulling and straighten your knee fully are two most important knee functions to focus on during your recovery. 3. It is ok to sit in chair to eat, use the toilet and receive a guest and to do your stretching exercises, but, sitting in a chair will cause your leg to swell. Therefore, avoid additional time sitting in the chair. and don't rest in the chair. 4. Wound Care: Nursing will give you an additional Mepilex dressing at the time of discharge. Patient to remove the dressing and apply a new Mepilex dressing at home 7 days after surgery and leave the dressing on until seen in office. 5. May shower with a Mepilex dressing in place.The water will run off the dressing. 6. Unless you are told otherwise, you may put full weight on your operated leg. Use a walker for balance and practice walking as normally as you can, ideally for a few minutes every hour while you are awake. 7. I would advise against putting ice packs on your knee incision. Ice constricts blood flow which can impar healing of the knee incision. IMPORTANT: Remember not to sit in the chair for more than 30 minutes at a time. As a rule, during the first 14 days after surgery, only sit in the chair to work on the chair knee bending stretch exercise, for meals or for use of the restroom. Sitt
[2023-09-01 07:13] LABS: Alanine Aminotransferase 17 U/L (6-35); Albumin Level 3.3 g/dL (3.5-5.1); Alkaline Phosphatase 87 U/L (38-126); Anion Gap 8 mmol/L (4-12); Aspartate Amino Transferase 20 U/L (14-36); Bilirubin,Total 0.5 mg/dL (0.2-1.3); Blood Urea Nitrogen 10 mg/dL (7-17); Calcium 8.1 mg/dL (8.4-10.2); Carbon Dioxide 24 mmol/L (22-30); Chloride 108 mmol/L (98-107); Estimated CRCL calculation 62 ml/min; Estimated Glomerular Filt Rate > 60; Glucose 106 mg/dL (65-110); Potassium 3.7 mmol/L (3.4-5.0); Sodium 140 mmol/L (137-145)
[2023-09-01] MEDS: SENNA/DOCUSATE SODIUM TABLET 2 TAB PO (08:00)
[2023-09-01] MEDS: polyethylene glycoL 3350 17 GM POWD.PACK PO (08:00)
[2023-09-01] MEDS: TOPIRAMATE 25 MG TABLET 50 MG BY MOUTH (08:00)
[2023-09-01] MEDS: CYCLOBENZAPRINE HCL 10 MG TABLET PO (08:00)
[2023-09-01] MEDS: SERTRALINE HCL 50 MG TABLET 100 MG PO (08:01)
[2023-09-01] MEDS: CELECOXIB 200 MG CAPSULE PO (08:01)
[2023-09-01] MEDS: buPROPion HCL XL (24 HR) 150 MG TABCR 300 MG PO (08:01)
[2023-09-01] MEDS: RIVAROXABAN 10 MG TABLET PO (08:01)
[2023-09-01] MEDS: BACLOFEN 10 MG TABLET 30 MG PO ×2 (08:01→12:40)
[2023-09-01 08:52] VITALS: BP 139/77; PULSE 88; RESP 18; TEMP 36.3; O2SAT 96
--- NOTE | 2023-09-01 09:37 | P.PNAN_ITS ---
Anes - Prog Note Post-Op Date/Time: 09/01/23 09:37 Cardiovascular status: normal Respiratory status: normal Airway patency: baseline Mental status: baseline Post-Op hydration status: normal Vital Signs: Last Vital Signs Temp 36.3 C L 09/01/23 08:52 Pulse 88 09/01/23 08:52 Resp 18 09/01/23 08:52 BP 139/77 09/01/23 08:52 Pulse Ox 96 09/01/23 08:52 O2 Del Method Room Air 09/01/23 08:00 O2 Flow Rate 8 08/31/23 10:15 Pain Score (VAS): 0 I/O: Intake & Output 08/31/23 09/01/23 09/01/23 23:59 07:59 15:59 Intake Total 290 240 Balance 290 240 Laboratory Tests 09/01/23 06:24 09/01/23 06:24 09/01/23 06:24 WBC 6.8 RBC 4.14 L Hgb 12.0 Hct 38.7 MCV 93.5 MCH 29.0 MCHC 31.0 L RDW 14.7 H Plt Count 167 MPV 11.3 H Immature Gran % (Auto) 0.4 Neut % (Auto) 82.1 H Lymph % (Auto) 2.5 L [place] % (Auto) 13.4 H Eos % (Auto) 1.3 Baso % (Auto) 0.3 Lymph # (Auto) 0.17 L [place] # (Auto) 0.9 H Eos # (Auto) 0.1 Baso # (Auto) 0.0 Abs Immat Gran (auto) 0.03 Absolute Neuts (auto) 5.6 Absolute Nucleated RBC 0.000 Nucleated RBC % 0.0 Sodium 140 Potassium 3.7 Chloride 108 H Carbon Dioxide 24 Anion Gap 8 BUN 10 Creatinine 0.90 Estim Creat Clear Calc 62 Estimated GFR > 60 Glucose 106 Calcium 8.1 L Magnesium 2.0 Total Bilirubin 0.5 Direct Bilirubin 0.0 AST 20 ALT 17 Alkaline Phosphatase 87 Total Protein 6.0 L Albumin 3.3 L Post-procedural complaints: none Patient Feedback: Patient satisfied with anesthetic care.
--- NOTE | 2023-09-01 14:44 | PCPTNOTE ---
Patient declined PT this afternoon stating I am too exhausted. I am waiting for my ride home. Educated patient on the importance of exercise and mobility to improve L Knee ROM and strength. Patient voiced understanding of education.
== END 2023-09-01 15:20 | disposition home or self-care (01) ==
LOC: ANHSURGERY 05:54 → ANH3MEDSUR 11:17
PROVIDERS: Orthopaedic Surgery; Physician Assistant; PCP Family Medicine; Visit Provider Nurse Practitioner Acute Care
PROC: (CPT 27447; principal; 2023-08-31 07:30)
DX: M17.12 Unilateral primary osteoarthritis, left knee (principal); G35 Multiple sclerosis; G62.9 Polyneuropathy, unspecified; F41.9 Anxiety disorder, unspecified; F32.A Depression, unspecified; E66.9 Obesity, unspecified; Z68.34 Body mass index [BMI] 34.0-34.9, adult; Z87.891 Personal history of nicotine dependence
CPT/HCPCS: 27447; 36415; 73560; 80048; 80076; 80307; 82040; 82565; 82947; 83036; 83735; 85025; 86850; 86900; 86901; 93005; 97110; 97116; 97161; 97165; 97530; 97535; A9270; C1713; C1776; J0171; J0690; J1100; J1170; J1885; J2250; J2270; J2405; J2704; J2795; J3010; J3370; J7030; J7120

== ENCOUNTER 2023-10-31 11:15 | Outpatient (RCR) | payer MEDICARE, SELFPAY ==
--- NOTE | 2023-09-05 15:00 | OPREHPOC ---
Outpatient Therapy Plan of Care This is a Multidisciplinary Plan of Care that may contain components documented by all disciplines (PT, OT, and ST.) PT Problem 1 PT Problem #1 Knowledge Deficit PT Goal 1 Goal 1* indep with HEP 2* correct use of assistive device Target Visit 10 PT Problem 2 PT Problem #2 Pain PT Goal 1 Goal 1* pain rating of 4/10 at worst 2* self assessment LE functional scale rating of 45% limitation in activity level 3* with sleeping, awaken 1x/night due to knee pain Target Visit 10 PT Problem 3 PT Problem #3 Impaired Flexibility PT Goal 1 Goal increase L knee ROM to improve gait and stairs, transfer skill: sitting active knee 1* flexion 110' 2* extension 0' decrease edema to improve mobility circumferential measurements of knee: 3* superior to patella 37 cm 4* mid patella 37 cm 5* inferior to patella 33 cm Target Visit 10 PT Problem 4 PT Problem #4 Impaired Strength PT Goal 1 Goal increase strength of L hip and knee to improve mobility 1* pt perform 20 reps of mat and standing exercises Target Visit 10 PT Problem 5 PT Problem #5 Impaired Functional Mobility PT Goal 1 Goal 1* 2 minute walking test distance of 350' 2* up/down 8 stairs with one hand railing and alternate step pattern 3* pt report walking in the community Target Visit 10
--- NOTE | 2023-09-05 15:01 | PTOPEVAL1 ---
Assessment and note entered by Lizett Hensley, PT Evaluation Information Assessment Status Evaluation ICD-10 Condition Codes (PT) Pain in left knee M25.562,Difficulty Walking R26.2 ,Weakness R53.1 Other ICD-10 Condition Codes ( Z96.662-- artificial L knee joint PT) Onset 08-31-23 Subjective Information since surgery, using the wheeled walker and feel good at getting around her house; have been elevating L leg and resting; have been doing ankle pumps, SLR, quad sets at home; Activity: does not work outside of home; prior to surgery--did not use device; live with daughter- help each other PRN; no stairs , with entry ramp; Reported Pain Level Pain Score Self Report Additional Pain Score Comments pain range in the past few days 4- 810 dressing over knee incision; decrease pain: ice over medial aspect of knee; prescription hydrocodone every 4 hours with sleeping awaken due to knee pain 2-3x/ night Assessment PT Clinical Summary Kirsty is s/p L TKR 5 days ago. She had R TKR in 2022. Prior to surgery, she was active and indep. She has been doing the HEP from the hospital. With the evaluation: she has decreased ROM of L knee, with pain and weakness over L LE; using the wheeled walker, with 2 minute walking test distance of 250'; on 4 stairs use of single step pattern and bilateral hand rails; edema and redness over knee and ankle swollen. Skilled PT services are indicated for modalities to decrease pain and swelling of knee, therapeutic exercises to increase ROM and strength with education for advancing HEP and progression to lesser assistive device. Plan of Care Interventions Electrical Stimulation,Hot Pack/Cold Pack, Intermittent Compression,Manual Therapy,Neuro Re- education,Patient/Caregiver Education,Therapeutic Activities,Therapeutic Exercise,Other Other Interventions taping, IASTM PT Services Indicated Yes
--- NOTE | 2023-10-06 16:39 | OPREHPOC ---
Outpatient Therapy Plan of Care This is a Multidisciplinary Plan of Care that may contain components documented by all disciplines (PT, OT, and ST.) PT Problem 1 PT Problem #1 Knowledge Deficit PT Goal 1 Goal / Goal Update 1* indep with HEP 2* correct use of assistive device Target Visit 10 Progress Met PT Problem 2 PT Problem #2 Pain PT Goal 1 Goal / Goal Update 1* pain rating of 4/10 at worst 2* self assessment LE functional scale rating of 45% limitation in activity level 3* with sleeping, awaken 1x/night due to knee pain Continues to show pain limitation. Target Visit 18 Progress Partially Met PT Problem 3 PT Problem #3 Impaired Flexibility PT Goal 1 Goal / Goal Update increase L knee ROM to improve gait and stairs, transfer skill: sitting active knee 1* flexion 110' 2* extension 0' decrease edema to improve mobility circumferential measurements of knee: 3* superior to patella 37 cm 4* mid patella 37 cm 5* inferior to patella 33 cm Target Visit 18 Progress Partially Met PT Problem 4 PT Problem #4 Impaired Strength PT Goal 1 Goal / Goal Update increase strength of L hip and knee to improve mobility 1* pt perform 20 reps of mat and standing exercises Target Visit 10 Progress Met PT Problem 5 PT Problem #5 Impaired Functional Mobil PT Goal 1 Goal / Goal Update 1* 2 minute walking test distance of 350' 2* up/down 8 stairs with one hand railing and alternate step pattern 3* pt report walking in the community Target Visit 10 Progress Met
--- NOTE | 2023-10-06 16:39 | PTOPPROG ---
Assessment and note entered by Prudencio Lu, PT Evaluation Information Assessment Status Progress ICD-10 Condition Codes (PT) Pain in left knee M25.562,Difficulty Walking R26.2 ,Weakness R53.1 Other ICD-10 Condition Codes ( Z96.662-- artificial L knee joint PT) Onset 08-31-23 Subjective Information Reports that overall she is doing better than she did with her right TKA at this time. Still has pain but is not taking pain medication. She feels she still has a ways to go with her ROM and gait and would like to continue therapy. Assessment PT Clinical Summary Patient has made significant progress at this time . She continues to show some minor loss in terminal knee extension and knee flexion but has come a long way from the initial visit. Continues to have some gait deviation and we discussed possible implementation of arch support to prevent ankle collapse and reduce medial knee stress. 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 Plan of Care Interventions Electrical Stimulation,Hot Pack/Cold Pack, Intermittent Compression,Manual Therapy,Neuro Re- education,Patient/Caregiver Educati,Therapeutic Activities,Therapeutic Exercise,Other Other Interventions sarahing, IASEDITH PT Services Indicated Yes Treatment Frequency and 2x/week for 8 visits Duration These treatments will address the objective and functional deficits as defined above. The patient will be advanced safely and appropriately in order for the patient to progress towards his/her prior level of function. Additional exercises will be introduced and as well as a comprehensive home exercise program upon discharge, if needed, ?to ensure carryover of functional gains achieved in the clinic. This treatment plan has been reviewed and agreement upon by the patient.
--- NOTE | 2023-10-12 08:45 | PCPTNOTE ---
No call no show, reason unknown. AKJaimee
--- NOTE | 2023-11-02 08:19 | PCPTNOTE ---
Pt cancelled due to family emergency.
--- NOTE | 2023-11-07 09:07 | PCPTNOTE ---
Pt cancelled due to family emergency and due to severity of emergency may need to cancel ther remainder of her appt.
--- NOTE | 2023-11-17 11:47 | PTOPDC ---
Assessment and note entered by Lizett Hensley, PT Discharge Report Assessment Status Discharge - Pt Not Present ICD-10 Condition Codes (PT) Pain in left knee M25.562,Difficulty Walking R26.2 ,Weakness R53.1 Other ICD-10 Condition Codes ( Z96.662-- artificial L knee joint PT) Onset 08-31-23 Subjective Information pt called and canceled her remaining appointments due to her daughter being ill. Assessment PT Clinical Summary Kirsty has received 14 PT sessions, from September 04 to Oct 30. She had 1 no show and 2 call/ cancel appointments. She then canceled all of her remaining appointments due to her daughter being ill. Discharge PT. The goals were not assessed. Plan of Care PT Services Indicated No
== END 2023-11-17 13:42 | disposition home or self-care (01) ==
LOC: ANHPT 11:15
PROVIDERS: PCP Family Medicine; Visit Provider Orthopaedic Surgery
DX: Z47.1 Aftercare following joint replacement surgery (principal); Z96.652 Presence of left artificial knee joint
CPT/HCPCS: 97016; 97110; 97116; 97140; 97161; 97530